=== PATIENT | male | born 1965 ===

== ENCOUNTER 2017-01-05 17:54 | Emergency (ER) | payer SELFPAY ==
[2017-01-05 18:07] VITALS: BP 122/69; PULSE 85; RESP 18; TEMP 98.7; O2SAT 98
--- NOTE | 2017-01-05 18:43 | C.PDOC ---
History Of Present Illness 51 year old male presents to the ED with complaints of right ear pain for 2 days. He reports feeling clogged sensation. Denies any fever, discharge. Time Seen by Provider: 01/05/17 18:12 Chief Complaint (Nursing): ENT Problem History Per: Patient History/Exam Limitations: None Onset/Duration Of Symptoms: Days (2 days ) Current Symptoms Are (Timing): Still Present Quality (Ear): denies: Swelling, Discharge Anticoagulant/Antiplatlet Use?: No Recent Aspirin Use: No Past Medical History Reviewed: Historical Data, Nursing Documentation, Vital Signs Vital Signs: Last Vital Signs Temp 98.7 F 01/05/17 18:05 Pulse 85 01/05/17 18:05 Resp 18 01/05/17 18:05 BP 122/69 01/05/17 18:05 Pulse Ox 98 01/05/17 19:04 - Medical History PMH: No Chronic Diseases Surgical History: No Surg Hx Family History: States: Unknown Family Hx - Social History Hx Alcohol Use: Yes Hx Substance Use: No - Immunization History Hx Tetanus Toxoid Vaccination: No Hx Influenza Vaccination: No Hx Pneumococcal Vaccination: No Review Of Systems Constitutional: Negative for: Fever, Chills Eyes: Negative for: Redness ENT: Positive for: Ear Pain (right ear pain). Negative for: Nose Discharge, Throat Pain Physical Exam - Physical Exam Appears: Non-toxic, No Acute Distress Skin: Warm, Dry Head: Atraumatic, Normacephalic Eye(s): bilateral: Normal Inspection, PERRL, EOMI Ear(s): Left: Normal, Right: TM Obscured By Wax (excessive cerumen ) Nose: Normal, No Discharge Oral Mucosa: Moist Throat: Normal, No Erythema, No Exudate Neck: Normal ROM Lymphatic: Normal Exam, No Adenopathy Chest: Symmetrical, No Deformity Cardiovascular: Rhythm Regular, No Murmur Respiratory: Normal Breath Sounds, No Rales, No Rhonchi, No Wheezing Extremity: Bilateral: Atraumatic, Normal ROM Neurological/Psych: Oriented x3, Normal Speech Gait: Steady ED Course And Treatment O2 Sat by Pulse Oximetry: 98 (room air ) Medical Decision Making Medical Decision Making: Ear lavage performed, some cerumen remains. Will discharge with Rx and instruct to follow up with ENT Disposition Counseled Patient/Family Regarding: Diagnosis, Need For Followup, Rx Given - Disposition Disposition: HOME/ ROUTINE Disposition Time: 18:40 Condition: STABLE Additional Instructions: aplique 1-3 gotas en la oreja afectada jp veces al da para la eliminacin de la cera del odo seguimiento con ENT para ms cuidado Prescriptions: Carbamide Peroxide [Debrox Ear Drops] 1 drop AD TID #1 bottle Instructions: Cerumen Impaction (ED) Forms: [facility] [place] (Jamaican) Print Language: CONGOLESE - POA Present On Arrival: None - Clinical Impression Clinical Impression: Cerumen impaction - PA / CELLAR SUPERVISOR / Resident Statement MD/DO has reviewed & agrees with the documentation as recorded. - Scribe Statement The provider has reviewed the documentation as recorded by the Scribe Krystyna Eldridge All medical record entries made by the Scribe were at my direction and personally dictated by me. I have reviewed the chart and agree that the record accurately reflects my personal performance of the history, physical exam, medical decision making, and the department course for this patient. I have also personally directed, reviewed, and agree with the discharge instructions and disposition. Procedures - Ear Wax Removal Right Ear Cerumenolytic Used: 5-10 % Sodium Bicarb solution Result: Re-examined: some cerumen remains TM Examination: TM(s) intact, normal appearance Ear Canal Exam: atraumatic Patient Tolerated Procedure: well Complications: no problems Technique: ear canal irrigated, ear canal curetted
== END 2017-01-05 19:05 | disposition home or self-care (01) ==
LOC: C.ER 17:54
DX: H61.21 Impacted cerumen, right ear (principal)